=== PATIENT | male | born 1990 | race Caucasian/White ===

== ENCOUNTER 2018-03-13 16:49 | Emergency (ER) | payer MEDICAID ==
[~2018-03-13] VITALS: Ht 175.3 cm; Wt 104.3 kg
--- OUTSIDE RECORDS SUMMARY | ~2018-03-13 | XMS | Clinical Summary ---
Demographics + + + | Address | [address] | | | [place] [address] | + + + | Home Phone | | + + + | Preferred Language | Unknown | + + + | Marital Status | | + + + | Orthodox Affiliation | 1038 | + + + | Race | Unknown | + + + | Ethnic Group | Unknown | + + + Author + + + | Author | [facility] | | | and [place] | + + + | Organization | [facility] | | | and [place] | + + + | Address | Unknown | + + + | Phone | Unavailable | + + + Support + + + + + | Name | Relationship | Address | Phone | + + + + + | Chandrika Aceves | ECON | [address] | | | | | [place] | | | | | [address] | | + + + + + Care Team Providers + +------+ + | Care Ski Maker Name | Role | Phone | + +------+ + PP | Unavailable | + +------+ + Allergies + + + + + + | Active Allergy | Reactions | Severity | Noted | Comments | | | | | Date | | + + + + + + | Amoxicillin | Nausea And Vomiting | | 10/30/20 | | | | | | 14 | | + + + + + + | Penicillins | Hives, Itching | | 05/31/ | | | | | | 14 | | + + + + + + Current Medications + + + +---------+------+------+-------+ | Prescription | Sig. | Disp. | Refills | Star | End | Statu | | | | | | t | Date | s | | | | | | Date | | | + + + +---------+------+------+-------+ | fluticasone | 2 sprays by Nasal | 16 g | 12 | 12/1 | | Activ | | (FLONASE) 50 | route Daily. | | | 02/18 | | e | | mcg/nasal | | | | 14 | | | | sprayIndications: | | | | | | | | Postnasal drip | | | | | | | + + + +---------+------+------+-------+ | buPROPion | Take 1 tablet by | 90 | 1 | 12/1 | | Activ | | (WELLBUTRIN SR) 150 | mouth Daily. To help | tablet | | 02/18 | | e | | mg 12 hr | mood and attention | | | 14 | | | | tabletIndications: | | | | | | | | Attention deficit | | | | | | | | disorder of adult, | | | | | | | | Depression | | | | | | | + + + +---------+------+------+-------+ | | Inhale 1 puff into | 42 each | 0 | 07/02 | | Activ | | fluticasone-salmeter | the lungs Twice | | | 02/18 | | e | | ol (ADVAIR DISKUS) | Daily. | | | 14 | | | | 100-50 mcg/puff | | | | | | | | diskus | | | | | | | | inhalerIndications: | | | | | | | | Asthma, severe | | | | | | | | persistent, | | | | | | | | uncomplicated | | | | | | | + + + +---------+------+------+-------+ | mometasone | 2 sprays by Nasal | 7.5 g | 0 | 07/02 | | Activ | | (NASONEX) 50 | route Daily. | | | 02/18 | | e | | mcg/nasal | | | | 14 | | | | sprayIndications: | | | | | | | | Postnasal drip | | | | | | | + + + +---------+------+------+-------+ | albuterol 2.5 mg/3 | Take 3 mLs by | 180 | 0 | 06/0 | | Activ | | mL nebulizer | nebulization every 4 | vial | | 1/20 | | e | | solution | hours as needed for | | | 15 | | | | | Wheezing or | | | | | | | | Shortness of Breath. | | | | | | + + + +---------+------+------+-------+ | VENTOLIN HFA 108 | INHALE TWO PUFFS BY | 18 g | 1 | 07/2 | | Activ | | (90 BASE) MCG/ACT | MOUTH INTO THE LUNGS | | | 7/20 | | e | | inhaler | EVERY 6 HOURS | | | 15 | | | | | NEEDED FOR WHEEZING | | | | | | | | OR FOR SHORTNESS OF | | | | | | | | BREATH | | | | | | + + + +---------+------+------+-------+ Active Problems +---------+ + | Problem | Noted Date | +---------+ + | Asthma | 06/20/2014 | +---------+ + Immunizations + + + + | Name | Dates Previously Given | Next Due | + + + + | TDAP, (ADOL/ADULT) | 08/02/2011 | | + + + + Family History + + +------+ + | Medical History | Relation | Name | Comments | + + +------+ + | ADD/ADHD | Brother | | | + + +------+ + | Depression | Father | | | + + +------+ + | Other (see comment) | Father | | Kidney Stones | + + +------+ + | Heart attack | Maternal | | | | | Grandmoth | | | | | er | | | + + +------+ + | Asthma | Mother | | | + + +------+ + | Stroke | Mother | | attributed to substance abuse | + + +------+ + | Substance abuse | Mother | | Drugs | + + +------+ + | Heart attack | Paternal | | | | | Grandfath | | | | | er | | | + + +------+ + | Cancer | Paternal | | Possibly pancreatic cancer | | | Grandmoth | | | | | er | | | + + +------+ + | ADD/ADHD | Sister | | | + + +------+ + + +------+--------+ + | Relation | Name | Status | Comments | + +------+--------+ + | Brother | | Alive | | + +------+--------+ + | Brother | | Alive | | + +------+--------+ + | Father | | Alive | | + +------+--------+ + | Maternal Grandmother | | | | + +------+--------+ + | Mother | | Alive | | + +------+--------+ + | Paternal Grandfather | | | | + +------+--------+ + | Paternal Grandmother | | | | + +------+--------+ + | Sister | | Alive | | + +------+--------+ + | Sister | | Alive | | + +------+--------+ + | Sister | | Alive | | + +------+--------+ + Social History + +-------+ +--------+------+ | Tobacco Use | Types | Packs/Day | Years | Date | | | | | Used | | + +-------+ +--------+------+ | Never Smoker | | | | | + +-------+ +--------+------+ + +---+---+---+ | Smokeless Tobacco: | | | | | Never Used | | | | + +---+---+---+ + + +---------+ + | Alcohol Use | Drinks/We | oz/Week | Comments | | | ek | | | + + +---------+ + | Yes | | | Drinks socially once every few months. No | | | | | h/o abuse | + + +---------+ + + + + | Sex Assigned at | Date Recorded | | | | + + + | Not on file | | + + + Last Filed Vital Signs + + + + | Vital Sign | Reading | Time Taken | + + + + | Blood Pressure | 124/82 | 07/18/20141000 PST | + + + + | Pulse | 86 | 07/18/20141000 PST | + + + + | Temperature | 36.4 C (97.6 F) | 07/18/20141000 PST | + + + + | Respiratory Rate | 16 | 07/18/20141000 PST | + + + + | Oxygen Saturation | 99% | 07/18/20141000 PST | + + + + | Inhaled Oxygen | - | - | | Concentration | | | + + + + | Weight | 99.7 kg (219 lb 11.2 | 07/18/20141000 PST | | | oz) | | + + + + | Height | 175.3 cm (5' 9") | 07/18/20141000 PST | + + + + | Body Mass Index | 32.44 | 07/18/2014 1001 PST | + + + + Plan of Treatment + + + + + | Health Maintenance | Due Date | Last Done | Comments | + + + + + | Vaccine: Influenza | | | | | (#1) | 8 | | | + + + + + | Vaccine: | | 08/02/2011 | | | Dtap/Tdap/Td (2 - | 2 | | | | Td) | | | | + + + + + Results Not on filefrom Last 3 Months Insurance + +--------+ +------+ +---------+ | Payer | Benefi | Subscriber | Type | Phone | Address | | | t Plan | ID | | | | | | / | | | | | | | Group | | | | | + +--------+ +------+ +---------+ | [facility] | PHP | [id number] | PPO | [phone] | | | PLAN | [place] | | | [phone] | | | | [place] | | | | | | | [place] | | | | | + +--------+ +------+ +---------+ + +--------+ +--------+ + + | Guarantor Name | Accoun | Relation to | Date | Phone | Billing Address | | | t Type | Patient | of | | | | | | | | | | + +--------+ +--------+ + + | NITO ACEVES | Person | Self [birth year] Home: | [address] | | | al/Fam | | 1989 | [phone] | [place] [address] | | | roma | | | [address] | | + +--------+ +--------+ + +
--- OUTSIDE RECORDS SUMMARY | ~2018-03-13 | XMS | Clinical Summary ---
Demographics + + + | Address | [address] | | | [place] [address] | + + + | Home Phone | | + + + | Preferred Language | Unknown | + + + | Marital Status | | + + + | Shinto Affiliation | 1038 | + + + | Race | Unknown | + + + | Ethnic Group | Unknown | + + + Author + + + | Author | [facility] | | | and [place] | + + + | Organization | [facility] | | | and [place] [...] [place] | | | | | [address] | | + + + + + Care Team Providers + +------+ + | Care Sanding Machine Operator Name | Role | Phone | + [...] | | + +--------+ +------+ +---------+ | [facility] | PHP | [id number] | PPO | [phone] | | | PLAN | [place] | [...] | | al/Fam | | 1989 | [phone] | [place] [address] | | | roma | | | [address] | | + +--------+ +--------+ + +
[~2018-03-13 16:49] MED LIST: FLOVENT HFA12 G1 INH; METHYLPHENIDATE20 MG PO
[2018-03-13] MEDS ORDERED: VENTOLIN HFA18 GM INH (17:03)
--- NOTE | 2018-03-14 07:45 | EKG ---
[facility] [address] [place] [address] Signed Normal sinus rhythm Normal ECG No previous ECGs available Confirmed by CARMEN ÁLVAREZ MD ([id number]) on 03/14/2018 7:44:29 AM Electronically Signed By: CARMEN ÁLVARZE MD 03/14/18 0745 PATIENT NAME: CLARENCE LOCKE Electrocardiogram DATE OF : [birth year] PHYSICIAN: CARMEN ÁLVAREZ MD REPORT #: [id number] REPORT IS CONFIDENTIAL AND NOT TO BE RELEASED WITHOUT AUTHORIZATION
== END 2018-03-13 17:58 | disposition home or self-care (01) ==
LOC: ED 16:49
DX: R07.2 Precordial pain (principal); Z87.891 Personal history of nicotine dependence; Z88.0 Allergy status to penicillin
CPT/HCPCS: 71045; 80048; 84484; 85025; 93005; 93010; 99285

== ENCOUNTER 2018-03-29 08:56 | Emergency (ER) | payer BC ==
[~2018-03-29] VITALS: Ht 175.3 cm; Wt 102.1 kg
--- OUTSIDE RECORDS SUMMARY | ~2018-03-29 | XMS | Clinical Summary ---
Demographics + + + | Address | [address] | | | [place] [address] | + + + | Home Phone | | + + + | Preferred Language | Unknown | + + + | Marital Status | | + + + | Amish Affiliation | 1038 | + + + | Race | Unknown | + + + | Ethnic Group | Unknown | + + + Author + + + | Author | [facility] | | | and [place] | + + + | Organization | [facility] | | | and [place] | [...] [place] | | | | | [address] | | + + + + + Care Team Providers + +------+ + | Care Drying Oven Tender Name | Role | Phone | + [...] | | + +--------+ +------+ +---------+ | [facility] | PHP | [id number] | PPO | [phone] | | | PLAN | [place] | [...] | | al/Fam | | 1989 | [phone] | [place] [address] | | | roma | | | [address] | | + +--------+ +--------+ + +
--- OUTSIDE RECORDS SUMMARY | ~2018-03-29 | XMS | Clinical Summary ---
Demographics + + + | Address | [address] | | | [place] [address] | + + + | Home Phone | | + + + | Preferred Language | Unknown | + + + | Marital Status | | + + + | Zoroastrianism Affiliation | 1038 | + + + | Race | Unknown | + + + | Ethnic Group | Unknown | + + + Author + + + | Author | [facility] | | | and [place] | + + + | Organization | [facility] [place] [facility] | | | and [place] | [...] [place] | | | | | [address] | | + + + + + Care Team Providers + +------+ + | Care Loan Consultant Name | Role | Phone | + [...] | | + +--------+ +------+ +---------+ | [facility] | PHP | [id number] | PPO | [phone] | | | PLAN | PEBB | [...] | | al/Fam | | 1989 | [phone] | [place] [address] | | | [place]a | | | [address] | | + +--------+ +--------+ + +
[~2018-03-29 08:56] MED LIST changes: +VENTOLIN HFA18 GM INH
[2018-03-29] MEDS ORDERED: RITALIN20 MG PO (09:12)
--- NOTE | 2018-03-29 15:26 | EKG ---
[facility] [address] [place] [address] Signed Normal sinus rhythm ST elevation, probably due to early repolarization Borderline ECG When compared with ECG of 13-MAR-2018 16:55, No significant change was found Confirmed by CARMEN ÁLVAREZ MD ([id number]) on 03/29/2018 3:26:05 PM Electronically Signed By: CARMEN ÁLVAREZ MD 03/29/18 1526 PATIENT NAME: CLARENCE LOCKE Electrocardiogram DATE OF : [birth year] PHYSICIAN: CARMEN ÁLVAREZ MD REPORT #: [id number] REPORT IS CONFIDENTIAL AND NOT TO BE RELEASED WITHOUT AUTHORIZATION
== END 2018-03-29 10:40 | disposition home or self-care (01) ==
LOC: ED 08:56
DX: R55 Syncope and collapse (principal); J45.909 Unspecified asthma, uncomplicated; Z87.891 Personal history of nicotine dependence; Z88.0 Allergy status to penicillin; Z79.899 Other long term (current) drug therapy
CPT/HCPCS: 71045; 80053; 81001; 84484; 85025; 93005; 93010; 99284; J7030

== ENCOUNTER 2021-05-05 11:01 | Emergency (ER) | payer SELFPAY ==
[~2021-05-05] VITALS: Ht 175.3 cm; Wt 106.2 kg
[~2021-05-05 11:01] MED LIST changes: +RITALIN20 MG PO
[2021-05-05] MEDS ORDERED: ADVAIR 250-501 EACH INH (11:15)
== END 2021-05-05 12:09 | disposition home or self-care (01) ==
LOC: ED 11:01
DX: S63.501A Unspecified sprain of right wrist, initial encounter (principal); W21.01XA Struck by football, initial encounter; Y93.61 Activity, american tackle football; J45.909 Unspecified asthma, uncomplicated; Z88.0 Allergy status to penicillin; Z79.899 Other long term (current) drug therapy
CPT/HCPCS: 73110; 99283-25